=== PATIENT | male | born 1955 | race Caucasian/White ===

== ENCOUNTER → 2018-01-16 | Outpatient (CLI) | payer BC | END | disposition home or self-care (01) | LOC: HKI 09:55 | DX: M25.561 Pain in right knee (principal); Z96.651 Presence of right artificial knee joint | CPT/HCPCS: 73562; 73562-50 ==

== ENCOUNTER 2018-02-16 08:09 | Inpatient (IN) | payer BC ==
[2018-02-16] MEDS: DEXAMETHASONE 4 MG/ML 1 ML INJ IV (09:44)
[2018-02-16] MEDS: ACETAMINOPHEN 1000MG/100ML IV 100 ML IVPB (09:44)
[2018-02-16] MEDS: LACTATED RINGER'S 1,000 ML IV (09:44)
[2018-02-16] MEDS: LANSOPRAZOLE 30 MG CAP PO (09:44)
[2018-02-16] MEDS: ONDANSETRON 4 MG INJ IV ×4 (09:44→21:32)
[2018-02-16] MEDS: SOD CHLORIDE 0.9% 1,000 ML IV ×2 (09:53→17:18)
[2018-02-16] MEDS ORDERED: BETHANECHOL 25 MG TAB PO (10:00)
[2018-02-16] MEDS: CEFAZOLIN 1 GM/50 ML (PMX) 50 ML IVPB ×2 (10:00→20:03)
[2018-02-16] MEDS ORDERED: NALOXONE (0.4 MG/ML) INJ IV (10:00)
[2018-02-16] MEDS: TRANEXAMIC ACID 1,000 MG in D5W 100 ML AT INCISION X1 IVPB (10:00)
[2018-02-16] MEDS ORDERED: DIPHENHYDRAMINE 50 MG INJ IV ×3 (10:00→16:00)
[2018-02-16] MEDS ORDERED: NA PHOSPHATE/BIPHOS 133 ML ENEMA PR (10:00)
[2018-02-16] MEDS ORDERED: BISACODYL 10 MG SUPP PR (10:00)
[2018-02-16] MEDS: CEFAZOLIN 2 GM/50 ML (PMX) 50 ML (FOR WT < 120 KG) IVPB (10:00)
[2018-02-16] MEDS ORDERED: SENNA/DOCUSATE NA (8.6MG/50MG) TAB PO (10:00)
[2018-02-16] MEDS ORDERED: MAGNESIUM HYDROXIDE 30ML CUP PO (10:00)
[2018-02-16] MEDS ORDERED: oxyCODONE 5 MG TAB PO (10:00)
[2018-02-16] MEDS: TRANEXAMIC ACID 1,000 MG in D5W 100 ML AT CLOSURE X1 IVPB (11:00)
[2018-02-16] MEDS ORDERED: ONDANSETRON 4 MG INJ IV ×2 (12:30→16:00)
[2018-02-16] MEDS ORDERED: METOCLOPRAMIDE 10 MG INJ IV ×2 (12:30→16:00)
[2018-02-16] MEDS ORDERED: MIDAZOLAM 1 MG/ML 2 ML INJ (12:30)
[2018-02-16] MEDS ORDERED: MEPERIDINE 25 MG INJ IV ×2 (12:30→16:00)
[2018-02-16] MEDS ORDERED: FENTAnyl 50 MCG/ML VIAL IV ×2 (12:30→16:00)
[2018-02-16] MEDS ORDERED: HYDROmorphONE 1 MG/5 ML IV SYRINGE IV ×3 (12:30→16:00)
[2018-02-16] MEDS ORDERED: morphine SULFATE/PF (10 MG/10 ML) INJ (12:30)
[2018-02-16] MEDS ORDERED: BUPIVACAINE 0.75%/DEXT (SPINAL) 2 ML INJ (12:39)
[2018-02-16] MEDS: POLYMYXIN/BACITRACIN 1L IRRIG IRR (13:12)
[2018-02-16] MEDS ORDERED: FENTAnyl 50 MCG/ML VIAL ×2 (13:12→13:57)
[2018-02-16] MEDS ORDERED: hydrALAzine 20 MG INJ (13:31)
[2018-02-16] MEDS: ASPIRIN (EC) 325 MG TAB PO (14:00)
[2018-02-16] MEDS: DOCUSATE SODIUM 100 MG CAP PO (14:00)
[2018-02-16] MEDS ORDERED: LIDOCAINE 2% (SDV) 5 ML INJ (14:40)
[2018-02-16] MEDS ORDERED: ROCURONIUM 50 MG INJ (14:40)
[2018-02-16] MEDS ORDERED: ONDANSETRON 4 MG INJ (14:40)
[2018-02-16] MEDS ORDERED: PROPOFOL 20 ML (14:40)
[2018-02-16] MEDS ORDERED: BUPIVACAINE 0.5% (SDV) 30 ML INJ (14:41)
[2018-02-16] MEDS ORDERED: CEFAZOLIN 1 GM INJ (14:44)
[2018-02-16] MEDS: HYDROmorphONE 1 MG/5 ML IV SYRINGE IV (16:00)
[2018-02-16] MEDS: CELECOXIB 100 MG CAP PO (19:57)
[2018-02-16] MEDS: GABAPENTIN 100 MG CAP PO (19:57)
[2018-02-17] MEDS: oxyCODONE 5 MG TAB PO ×5 (02:25→15:43)
[2018-02-17] MEDS: ONDANSETRON 4 MG INJ IV ×2 (04:13→15:44)
[2018-02-17] MEDS: SOD CHLORIDE 0.9% 1,000 ML IV (04:14)
[2018-02-17] MEDS: CEFAZOLIN 1 GM/50 ML (PMX) 50 ML IVPB ×2 (04:14→12:08)
[2018-02-17 06:00] LABS: ADD MAN DIFF? NO
[2018-02-17 06:05] LABS: EOSINOPHILS % 0.1 % (0.0-7.0); HEMATOCRIT 34.3 % (42.0-52.0); HEMOGLOBIN 10.9 g/dl (14.0-18.0); LYMPHOCYTES # 1.6 10^3/ul (0.8-2.9); LYMPHOCYTES % 12.2 % (15.0-51.0); MEAN CORPUSCULAR HEMOGLOBIN 28.6 pg (29.0-33.0); MEAN CORPUSCULAR HGB CONC 31.8 g/dl (32.0-37.0); MEAN PLATELET VOLUME 9.9 fl (7.4-10.4); MONOCYTE # 1.4 10^3/ul (0.3-0.9); MONOCYTES % 10.5 % (0.0-11.0); NEUTROPHIL # 9.9 10^3/ul (1.6-7.5); NEUTROPHILS % 76.8 % (39.0-77.0); PLATELET COUNT 261 10^3/UL (140-415); RED BLOOD COUNT 3.81 10^6/ul (4.70-6.10); RED CELL DISTRIBUTION WIDTH 14.6 % (11.5-14.5)
[2018-02-17 06:05] LABS: WHITE BLOOD COUNT 12.9 10^3/ul (4.8-10.8)
[2018-02-17 07:09] LABS: ANION GAP 12 (8-16); BLOOD UREA NITROGEN 16 mg/dl (7-20); CALCIUM 7.7 mg/dl (8.4-10.2); CARBON DIOXIDE 26 mmol/L (21-31); CHLORIDE 107 mmol/L (97-110); CREATININE 0.87 mg/dl (0.61-1.24); GLUCOSE 112 mg/dl (70-220); POTASSIUM 4.3 mmol/L (3.5-5.1); SODIUM 141 mmol/L (135-144)
[2018-02-17] MEDS: GABAPENTIN 100 MG CAP PO (08:36)
[2018-02-17] MEDS: DOCUSATE SODIUM 100 MG CAP PO (08:36)
[2018-02-17] MEDS: FERROUS FUMARATE (SR) TAB PO (08:37)
[2018-02-17] MEDS: CELECOXIB 100 MG CAP PO (08:37)
[2018-02-17] MEDS: ASPIRIN (EC) 325 MG TAB PO (08:42)
[2018-02-17] MEDS: LACTATED RINGER'S 1,000 ML IV (10:00)
[2018-02-17] MEDS: SOD CHLORIDE 0.9% 250 ML IV (11:03)
[2018-02-18] MEDS ORDERED: PANTOPRAZOLE (EC) 40 MG TAB PO (06:00)
== END 2018-02-17 18:27 | disposition home health service (06) | DRG 468 ==
LOC: REC 08:09 → MS1 16:52
PROC: 0SRC0J9 Replacement of Right Knee Joint with Synthetic Substitute, Cemented, Open Approach (ICD-10-PCS; principal; 2018-02-16 11:00)
PROC: 0SPC0JZ Removal of Synthetic Substitute from Right Knee Joint, Open Approach (ICD-10-PCS; 2018-02-16 11:00)
DX: T84.052A Periprosthetic osteolysis of internal prosthetic right knee joint, initial encounter (principal); T84.062A Wear of articular bearing surface of internal prosthetic right knee joint, initial encounter; K21.9 Gastro-esophageal reflux disease without esophagitis; R00.1 Bradycardia, unspecified; Y83.2 Surgical operation with anastomosis, bypass or graft as the cause of abnormal reaction of the patient, or of later complication, without mention of misadventure at the time of the procedure; Y92.238 Other place in hospital as the place of occurrence of the external cause
CPT/HCPCS: 73560; 80048; 85025; 86850; 86900; 86901; 87070; 87081; 87102; 87116; 88300; 88304; 88311; 93005; 97116; 97161; 97166; 97530